=== PATIENT | male | born 1960 | race Caucasian/White ===

== ENCOUNTER 2023-11-02 11:52 | Outpatient (AMB) | payer OTHER, SELFPAY ==
--- NOTE | 2023-11-02 11:58 | MHC.OFFVIS ---
Intake Vital Signs 11/02/23 12:08 Height 6 ft Weight 260 lb BMI 35.3 Intake Visit Reasons: New Pt - Second Opinion Right Shoulder Intake Note: Louis is a 63 year old right hand dominant male who presents today for a second opinion of his right shoulder. He was previously seen with [facility]. Patient reports that he has had ongoing right shoulder pain for over two years now. He was supposed to have a right RTC repair done with [facility] but at the time his was dealing with brain cancer so it was postponed. He had a cortisone injection about 2 weels ago whih only helped for about 2 week now. Allergies No Known Allergies Allergy (Verified 11/02/23 12:11) HPI New Pt - Second Opinion Right Shoulder HPI Details Louis is a 63 year old man who presents for a second opinion of his right shoulder pain. He complains of pain with daily activity, worse with overhead activity and at night. he says this has been present for more than 2 years now. He has been seen at [facility] in the past for this. A RTC repair was planned but he had to postpone to care for his sick . He says he received a steroid injection ~2 weeks ago at [facility] which was mildly helpful until now. PFSH Surgical History (Updated 11/02/23 @ 12:13 by Ginny Ramirez CMA) Hx of eye surgery Hx of colectomy Social History (Updated 11/02/23 @ 12:14 by Ginny Ramirez CMA) Current occupational status: employed Current occupation: [employer] Review of Systems Const All systems reviewed & are unremarkable except as noted in HPI and below Physical Exam Vital Signs: BMI result Body Mass Index 35.3 Const General: no acute distress, alert and awake Orientation/consciousness: patient oriented x3 HEENT Head: Yes normocephalic and Yes atraumatic Eyes EOM: EOMs intact bilaterally Resp Effort & Inspection: normal respiratory effort and able to speak in complete sentences Cardio Jugular venous distension: no JVD Skin General skin exam: turgor normal Rashes: no rashes Neuro General: patient oriented x3 Extrem Other: 30/90/130 scapular recruitment with abduction 4+/5 EC neg lag neg HB Psych Appearance: grossly normal Affect: normal affect Attitude: cooperative Results Reviewed Results Reviewed: I personally reviewed relevant radiographs I reviewed MRI and there is a full thickness supraspinatus tear with mild retreaction and no atrophy. THere appears to be a partially intact infraspinatus. I personally reviewed relevant radiographs. No HH migration no OA Assessment & Plan Assessment & Plan (1) Rotator cuff tear, right: Code(s): M75.101 - Unspecified rotator cuff tear or rupture of right shoulder, not specified as traumatic Plan: Louis is a 63 yo with a right RTC tear. I reviewed his MRI from recently and compared to another he had ~ 2 years ago. In my opinion this is a clear indication for RTC repair. I think arthroplasty is too aggressive and I explained the details of RTC repair and the possible difficulties involved with repair including failure and need for additional surgery. He expressed understanding and hopefully this helps him feel that surgery is not controversial and he can proceed forward. Plan Scribed for Juventino Carvalho MD by Raymundo Garcia, medical library assistant, on 11/02/23 at 12:20 PM, EST. Orders: Orders XR shoulder RT min 2V 11/02/23 M25.519 - Pain in unspecified shoulder Coding Level of Care Code New Pt Level 4 (57397) Diagnoses Rotator cuff tear, right M75.101
[2023-11-02 12:08] VITALS: BMI 35.3
== END 2023-11-02 13:06 | disposition home or self-care (01) ==
PROVIDERS: Visit Provider Orthopaedic Surgery
DX: M75.101 Unspecified rotator cuff tear or rupture of right shoulder, not specified as traumatic (principal)
CPT/HCPCS: 99204

== ENCOUNTER 2023-11-02 11:52 | Outpatient (REF) | payer OTHER, SELFPAY ==
--- NOTE | ~2023-11-02 | XR_ITS ---
EXAMINATION: XR SHOULDER, RIGHT CLINICAL INFORMATION: Pain in unspecified shoulder COMPARISON: None available. TECHNIQUE: Neutral AP, Grashey and axillary views of the right shoulder. FINDINGS: The bones are intact no fracture. Glenohumeral and acromioclavicular alignment is anatomic. There is marked degenerative change acromioclavicular joint. There is moderate narrowing of the glenohumeral joint. A few calcifications are seen adjacent to the humeral head consistent with calcific tendinitis. XR/XR shoulder RT min 2V IMPRESSION: 1. Calcific tendinitis. 2. Marked degenerative change of the acromioclavicular joint and moderate degenerative change of the glenohumeral joint.
== END 2023-11-02 11:53 | disposition home or self-care (01) ==
LOC: HO.HOSX 11:52
PROVIDERS: Visit Provider Orthopaedic Surgery
DX: M75.101 Unspecified rotator cuff tear or rupture of right shoulder, not specified as traumatic (principal)
CPT/HCPCS: 73030

== ENCOUNTER 2024-02-11 09:19 | Outpatient (AMB) | payer OTHER, SELFPAY ==
--- NOTE | 2024-02-11 09:59 | MHC.OFFVIS ---
Intake Intake Visit Reasons: Pre Op Rt RTC repair 02/24/24 NE Intake Note: Louis is a 64 year old male who presents today for a pre op appointment for his right RTC repair 02/24/24 NE. Patient was fitted for a UltraSling(L). Allergies No Known Allergies Allergy (Verified 02/11/24 10:00) HPI Pre Op Rt RTC repair 02/24/24 NE HPI Details 64-year-old male who presents in the office today for his preoperative history and physical exam prior to a right shoulder rotator cuff repair to be performed on 02/24/[address] Juventino Carvalho. Patient presents with [facility] paperwork. He states he is planning on assisted after 03/25/2024. He needs his re-evaluation to be around 03/25/2024 for follow up paperwork. Patient confirms having a machine to help him with inflammation. Patient has no known allergy history. Patient is currently taking, as follows: -Amlodipine 10 mg PO daily -Cyclosporine 0.05% ophthalmic drop PRN -Fenofibrate nanocrystallized 48 mg PO daily -Hydrochlorothiazide 25 mg PO daily -Lisinopril 20 mg PO daily -Lisinopril 40 mg PO daily -Pravastatin 40 mg PO daily -Tamsulosin 0.4 mg PO daily Patient has no significant medical history. Patient has a surgical history, as follows: -Hx of eye surgery -Hx of colectomy Patient has a social history, as follows: -Employment: [employer] History (Updated 02/11/24 @ 10:34 by Chelsea Schneider PA-C) Hypercholesteremia BPH (benign prostatic hyperplasia) Hypertension Surgical History (Updated 11/02/23 @ 12:13 by Ginny Ramirez CMA) Hx of eye surgery Hx of colectomy Social History (Updated 11/02/23 @ 12:14 by Ginny Ramirez CMA) Current occupational status: employed Current occupation: [employer] Review of Systems Const All systems reviewed & are unremarkable except as noted in HPI and below Physical Exam Const General: cooperative, healthy appearing, comfortable, no acute distress, well developed, alert and awake Orientation/consciousness: patient oriented x3 HEENT Head: Yes normal to inspection, Yes normocephalic and Yes atraumatic Eyes General: appearance normal, both eyes and all related structures EOM: EOMs intact bilaterally Neck Neck: Yes normal visual inspection and Yes no lymphadenopathy Resp Effort & Inspection: normal respiratory effort and able to speak in complete sentences Cardio Jugular venous distension: no JVD Rate: regular rate Peripheral pulses: Peripheral pulses 2+ throughout GI Inspection: Yes normal to inspection Palpation (GI): Soft to palpation Skin General skin exam: no rashes or lesions noted Rashes: no rashes Neuro General: patient oriented x3 Extrem Other: Right shoulder: Skin is clean and intact. /130 scapular recruitment with abduction 4+/5 EC neg lag neg HB Psych Appearance: grossly normal Mental Status: mental status grossly normal Affect: normal affect Attitude: cooperative Assessment & Plan Assessment & Plan (1) Rotator cuff tear, right: Code(s): M75.101 - Unspecified rotator cuff tear or rupture of right shoulder, not specified as traumatic Plan Mr. Luna is a 64-year-old male who presents in the office today for his preoperative history and physical exam prior to a right shoulder rotator cuff repair to be performed on 02/24/[address] Juventino Carvalho. Patient presents with [facility] paperwork. He states he is planning on assisted after 03/25/2024. He needs his re-evaluation to be around 03/25/2024 for follow up paperwork. Patient confirms having a machine to help him with inflammation. Patient has no known allergy history. Patient is currently taking, as follows: -Amlodipine 10 mg PO daily -Cyclosporine 0.05% ophthalmic drop PRN -Fenofibrate nanocrystallized 48 mg PO daily -Hydrochlorothiazide 25 mg PO daily -Lisinopril 20 mg PO daily -Lisinopril 40 mg PO daily -Pravastatin 40 mg PO daily -Tamsulosin 0.4 mg PO daily Patient has no significant medical history. Patient has a surgical history, as follows: -Hx of eye surgery -Hx of colectomy Patient has a social history, as follows: -Employment: [employer] [place] I discussed in detail the procedure and what to expect pre and post operatively. We discussed the risks, benefits and alternatives to the surgery as well as the rehabilitation course. The risks; which include, but are not limited to infection, bleeding, nerve injury, ongoing pain, swelling, and stiffness, perioperative risk of injury to bones and soft tissues, and blood clots. I have answered all questions and with their understanding they have consented to move forward with a right shoulder rotator cuff repair to be performed on 02/24/[address] Juventino Carvalho. Post operative medications was sent to the pharmacy, Oxycodone-acetaminophen 5-325 mg (Percocet) PO Q4-6H PRN, quantity 42 tabs for 7 days and Morphine ER 15 mg (MS Contin) PO Q12H PRN, quantity 6 tabs for 3 days while in the office today. The patient was instructed that he should obtain the prescription prior to surgery but should not consume until after the procedure; as these should only be taken for post operative pain management. Should the patient take these medications prior to surgery a refill will not be sent to the pharmacy until their scheduled refill date. Follow up will be at the post operative appointment on 03/10/2024 at 3:00 pm, or sooner if needed. Patient was fitted for a UltraSling(L). Medications: New oxycodone-acetaminophen 5-325 mg (Percocet) Partial Fill upon patient request. 1 tab PO Q4-6H PRN 42 tabs 0RF pain 7 days morphine ER (MS Contin) Partial Fill upon patient request. 15 mg PO Q12H 6 tabs 0RF pain severe 3 days Patient Instructions: Scribed by Hillary Holloway director of medical education, for Chelsea Schneider PA-C on 02/11/2024 at 9:23 am, EST. Coding Level of Care Code Global (89080) Diagnoses Rotator cuff tear, right M75.101
== END 2024-02-11 10:27 | disposition home or self-care (01) ==
PROVIDERS: PCP Student in an Organized Health Care Education/Training Program; Visit Provider Physician Assistant
DX: M75.101 Unspecified rotator cuff tear or rupture of right shoulder, not specified as traumatic (principal)
CPT/HCPCS: 99024

== ENCOUNTER → 2024-02-11 09:19 | Outpatient (BNVA) | payer OTHER, SELFPAY | PROVIDERS: PCP Student in an Organized Health Care Education/Training Program; Visit Provider Physician Assistant ==

== ENCOUNTER 2024-02-16 11:00 | Outpatient (RCR) | payer OTHER, SELFPAY | END 2024-12-07 11:33 | disposition home or self-care (01) | LOC: HO.PTWFD 11:00 | PROVIDERS: PCP Student in an Organized Health Care Education/Training Program; Visit Provider Orthopaedic Surgery | DX: M75.101 Unspecified rotator cuff tear or rupture of right shoulder, not specified as traumatic (principal) | CPT/HCPCS: 97110; 97161; 97535 ==

== ENCOUNTER 2024-02-24 07:49 | Day surgery (SDC) | payer OTHER, SELFPAY ==
[2024-02-19 16:58] VITALS: BMI 34.9
--- NOTE | 2024-02-23 09:04 | HO.ANESPROP2 ---
Documented by User: Kalyn Meeks NP 02/23/24 09:07 HPI - Anesthesia Eval Consult details Narrative: 64yo M for Right Arthroscopic Rotator Cuff Repair PMFSH Active Problems Active Problems: All Active Problems Rotator cuff tear, right (Acute) Past Medical History Medical History VALERIA (obstructive sleep apnea) Hypercholesteremia BPH (benign prostatic hyperplasia) Hypertension Surgical History Surgical History H/O colonoscopy Hx of eye surgery Hx of colectomy Social History Social History Patient Tobacco Use Status: Never used Tobacco Use of substances other than those prescribed or required for medical reasons: No Are you DNR?: No Advance Directives: No Advance Directives Information Provided: Yes Advance Directives on File: No (Pt to bring DOS) Advance Directives Date on File: 02/19/24 Recently lost weight without trying: No How much weight loss: Not applicable Eating poorly because of decreased appetite: No Nutrition screen score: 0 Nutrition Risks: No Nutritional Risk Poor oral hygiene: No Current occupational status: employed Current occupation: [employer] Allergies Allergy/AdvReac Type Severity Reaction Status Date / Time No Known Allergies Allergy Verified 02/19/24 16:45 Home Medications ?Medication ?Instructions ?Recorded ?Confirmed ?Last Taken ?Type amlodipine 10 mg tablet 10 mg PO DAILY 11/02/23 02/19/24 02/24/24 History cyclosporine 0.05 % eye drops in a 1 drp ophthalmic (eye) DAILY 11/02/23 02/19/24 Unknown History dropperette (Restasis) fenofibrate nanocrystallized 48 mg 48 mg PO DAILY 11/02/23 02/19/24 Unknown History tablet hydrochlorothiazide 25 mg tablet 25 mg PO DAILY 11/02/23 02/19/24 Unknown History lisinopril 20 mg tablet 20 mg PO DAILY 11/02/23 02/19/24 Unknown History lisinopril 40 mg tablet 40 mg PO DAILY 11/02/23 02/19/24 Unknown History pravastatin 40 mg tablet 40 mg PO DAILY 11/02/23 02/19/24 Unknown History tamsulosin 0.4 mg capsule 0.4 mg PO DAILY 11/02/23 02/19/24 Unknown History Exam Height,Weight and Vital Signs: Height 6 ft Weight 116.573 kg Assessment and Plan Assessment Anesthesia Assessment: Chart Reviewed Documented by User: Lainey Garcia MD 02/24/24 10:09 [facility] Past Medical History Medical History VALERIA (obstructive sleep apnea) Hypercholesteremia BPH (benign prostatic hyperplasia) Hypertension Family History Family history of problems with anesthesia: No Surgical History Surgical History H/O colonoscopy Hx of eye surgery Hx of colectomy History of Problems with Anesthesia: No Social History Social History Patient Tobacco Use Status: Never used Tobacco Use of substances other than those prescribed or required for medical reasons: No Are you DNR?: No Advance Directives: No Advance Directives Information Provided: Yes Advance Directives on File: No (Pt to bring DOS) Advance Directives Date on File: 02/19/24 Recently lost weight without trying: No How much weight loss: Not applicable Eating poorly because of decreased appetite: No Nutrition screen score: 0 Nutrition Risks: No Nutritional Risk Poor oral hygiene: No Current occupational status: employed Current occupation: [employer] Allergies Allergy/AdvReac Type Severity Reaction Status Date / Time No Known Allergies Allergy Verified 02/19/24 16:45 Home Medications ?Medication ?Instructions ?Recorded ?Confirmed ?Last Taken ?Type amlodipine 10 mg tablet 10 mg PO DAILY 11/02/23 02/19/24 02/24/24 History cyclosporine 0.05 % eye drops in a 1 drp ophthalmic (eye) DAILY 11/02/23 02/19/24 Unknown History dropperette (Restasis) fenofibrate nanocrystallized 48 mg 48 mg PO DAILY 11/02/23 02/19/24 Unknown History tablet hydrochlorothiazide 25 mg tablet 25 mg PO DAILY 11/02/23 02/19/24 Unknown History lisinopril 20 mg tablet 20 mg PO DAILY 11/02/23 02/19/24 Unknown History lisinopril 40 mg tablet 40 mg PO DAILY 11/02/23 02/19/24 Unknown History pravastatin 40 mg tablet 40 mg PO DAILY 11/02/23 02/19/24 Unknown History tamsulosin 0.4 mg capsule 0.4 mg PO DAILY 11/02/23 02/19/24 Unknown History Exam Airway Mallampati Class: III TM Dist: >3cm Neck ROM: Limited Heart: rrr Lungs: cta Assessment and Plan Assessment Anesthesia Assessment: Anesthesia Plan Discussed (cbc,lytes,ekg ordered .no preop labs baseline. pt on bipap, 117 kgs and on 3 htn meds incl high dose lisinopril) Final Anesthetic Review Family History of Problems with Anesthesia: No History of Problems with Anesthesia: No NPO: Yes ASA Class: III Final Preanesthetic Review: No Changes in Pt Med Stat, Meds/Allgs Chart Reviewed, Consent Obtained/Reviewed and Anes Risks/Benef Reviewed Patient Risk: Intermediate Procedure Risk: Intermediate Anesthetic Plan Anesthetic Plan: GA and Regional Block Disposition: Standard PACU
[2024-02-24] VITALS (9 sets, daily range): BP systolic 119–179; BP diastolic 57–90; PULSE 71–84; RESP 13–20; TEMP 36.1–36.3; O2SAT 94–98; BMI 35.1
--- NOTE | 2024-02-24 | ECG_ITS ---
Test Reason : surg. Blood Pressure : / mmHG Vent. Rate : 066 BPM Atrial Rate : 066 BPM P-R Int : 178 ms QRS Dur : 100 ms QT Int : 418 ms P-R-T Axes : 055 002 015 degrees QTc Int : 438 ms Normal sinus rhythm Normal ECG No previous ECGs available Referred By: Lainey Garcia Electronically Signed By:CHAZ WAGGONER MD
[2024-02-24] MEDS: Lactated Ringers 1,000 ML 100 ML IVCONT (08:22)
[2024-02-24 08:45] LABS: Hemoglobin 13.8 g/dl (14.0-18.0); Mean Corpuscular HGB Conc 34.5 g/dl (31.0-36.0); Mean Corpuscular Hemoglobin 31.5 pg (27.0-33.0); Mean Corpuscular Volume 91.3 fL (80.0-98.0); Mean Platelet Volume 10.6 fL (9.4-12.4); Platelet Count 242 X10*3/uL (160-400); Red Blood Count 4.38 X10*6/uL (4.60-5.80); Red Cell Distribution Width 13.3 % (11.0-16.0); White Blood Count 9.3 X10*3/uL (4.8-10.8)
[2024-02-24 08:58] LABS: Anion Gap 15 (12-20); Blood Urea Nitrogen 14 mg/dL (9-16); Calcium 9.3 mg/dL (8.4-10.2); Carbon Dioxide 26 mmol/L (22-29); Chloride 106 mmol/L (96-108); Creatinine Clr Calc Pharmacy 117.6; Estimated Glomerular Filt Rate > 60; Glucose Fasting 106 mg/dL (60-99); Potassium 3.1 mmol/L (3.3-5.1); Sodium 144 mmol/L (135-145)
--- NOTE | 2024-02-24 09:33 | MHC.SHP ---
Pre-Procedural Eval Section A - 24 Hr Update-Section A only Date of Service: 02/24/24 The patient is an INPATIENT: No Changes since office visit: No Cold of Flu in the past 2 weeks, No New Medical Problems, No Changes in Medication and No Patient answered all questions The patient has been examined within 24 hours of the surgical procedure. The History & Physical has been completed within 30 days and I have reviewed it.: Yes Section B - Complete if H&P > 30 days Chief Complaint: Unspecified rotator cuff tear or rupture of right Allergies: Allergies Allergy/AdvReac Type Severity Reaction Status Date / Time No Known Allergies Allergy Verified 02/19/24 16:45 Plan I have reviewed the history and physical and performed a pertinent physical examination on my patient. No changes have occurred unless specified. Time Spent With Patient Time: Total time managing care of this patient today ____ minutes.
--- NOTE | 2024-02-24 11:07 | PM.OP ---
Brief Operative Note Date of Service: 02/24/24 Pre-op diagnosis: Right rotator cuff tear Post-op diagnosis: same Procedure: Right rotator cuff repair Implants: Diop and Nephew double loaded Helacoil x 3 Idop and nephew 5.0 knotless Helacoil x 3 Surgeon: Juventino Carvalho MD Anesthesia: GETA Was an Radiologic Technologist used for this Procedure?: No Radiologic Technologist: Chelsea Schneider Estimated blood loss (mL): 25 IV fluids (mL): 1,000 Pathology: none sent Condition: stable Disposition: PACU
--- NOTE | 2024-02-27 12:26 | W.PM.OPN ---
Operative Note Operative Note Date of Service: 02/24/24 Narrative: Date of Service: 02/24/24 Pre-op diagnosis: Right rotator cuff tear Post-op diagnosis: same Procedure: Right rotator cuff repair Implants: Diop and Nephew double loaded Helacoil x 3 Diop and nephew 5.0 knotless Helacoil x 3 Surgeon: Juventino Carvalho MD Anesthesia: GETA Was an Nurse Practitioner Hospitalist used for this Procedure?: No Nurse Practitioner Hospitalist: Chelsea Schneider Estimated blood loss (mL): 25 IV fluids (mL): 1,000 Pathology: none sent Condition: stable Disposition: PACU Procedure in detail: Patient was brought to the operating room and placed the the beach chair position. All bony prominences were well padded and the limb was prepped and draped in standard sterile fashion. A time out was called to identify proper site, proper procedure and proper surgeon. IV antibiotics per weight were administered. I began by making a posterolateral stab incision with a 15 blade. A blunt trochar was placed into the glenohumeral joint and I insufflated the joint with saline and a 30 degree arthroscope was placed. I established an outside- in anterior portal just distal to the biceps tendon. I then began my inspection of the glenohumeral joint. There was mild superior labral degeneration. The biceps anchor was intact. There no cartilage changes at the inferior glenoid without humeral head changes. There was a full thickness undersurface RTC tear. The subcapularis was intact. I debrided the loose cartilage of the glenoid and the degenerative labral tearing. I then removed the trochar and entered the subacromial space. A direct lateral portal was then established and I performed a bursectomy. The cuff was then examined. There was a full thickness tear of the supra and infraspinatus with retraction. The tear was mobile to a point. I released anteriorly and medially.. I placed three medial row double loaded anchors after using a tap just adjacent to the articular cartilage and then brought the suture limbs (12) through the medial cuff. I then debrided the bare area down to bleeding bone and, using a cross bridge configuration, brought 4 limbs to each of three lateral 5.0 anchors. This re-approximated the cuff anatomy near anatomically. I performed a 4mm SAD using a swetha. Once I was satisfied with the repair final images were captured and I removed all instrumentation. Portals were closed with nylon. Patient was placed in an abduction sling, extubated and brought to the recovery room in stable condition. There were no known complications.
== END 2024-02-24 12:58 | disposition home or self-care (01) ==
PROVIDERS: Anesthesiology; PCP Student in an Organized Health Care Education/Training Program; Visit Provider Orthopaedic Surgery
PROC: (CPT 29827; principal; 2024-02-24 10:20)
DX: M75.101 Unspecified rotator cuff tear or rupture of right shoulder, not specified as traumatic (principal); I10 Essential (primary) hypertension; E78.00 Pure hypercholesterolemia, unspecified; N40.0 Benign prostatic hyperplasia without lower urinary tract symptoms; Z79.899 Other long term (current) drug therapy; Z98.890 Other specified postprocedural states
CPT/HCPCS: 29827; 36415; 80048; 85027; 93005; C1713; J0131; J0171; J0665; J0690; J1100; J1885; J2250; J2405; J2704; J3010

== ENCOUNTER → 2024-02-24 07:49 | Outpatient (BNV) | payer OTHER, SELFPAY | PROVIDERS: PCP Student in an Organized Health Care Education/Training Program; Visit Provider Orthopaedic Surgery | DX: M75.121 Complete rotator cuff tear or rupture of right shoulder, not specified as traumatic (principal) | CPT/HCPCS: 29827 ==

== ENCOUNTER → 2024-02-24 08:23 | Outpatient (BNV) | payer OTHER, SELFPAY | PROVIDERS: PCP Student in an Organized Health Care Education/Training Program; Visit Provider Internal Medicine Cardiovascular Disease | DX: Z01.818 Encounter for other preprocedural examination (principal) | CPT/HCPCS: 93010 ==

== ENCOUNTER 2024-03-10 14:46 | Outpatient (AMB) | payer OTHER, SELFPAY ==
--- NOTE | 2024-03-10 14:50 | A.OFFVIS_ITS ---
Intake Visit Reasons: PO Rt RTC repair 02/24/24 NE Intake Note: Louis is a 64 year old right hand dominant male who presents today for a post op appointment s/p Rt RTC repair 02/24/24 NE. Patient reports having some soreness. He has been taking Tylenol which helps him. Allergies No Known Allergies Allergy (Verified 03/10/24 14:50) HPI HPI PO Rt RTC repair 02/24/24 NE: Details: 64-year-old female who presents in the office today 15 days status post right shoulder rotator cuff repair, which was performed on 02/24/[address] Carvalho. While in the office today the patient reports having some soreness. He confirms the use of Tylenol with relief. PFSH Medical History VALERIA (obstructive sleep apnea) Hypercholesteremia BPH (benign prostatic hyperplasia) Hypertension Surgical History H/O colonoscopy Hx of eye surgery Hx of colectomy Social History Patient Tobacco Use Status: Never used Tobacco Advance Directives Date on File: 02/19/24 Current occupational status: employed Current occupation: [employer] Review of Systems Const All systems reviewed & are unremarkable except as noted in HPI and below Physical Exam Extrem Other: Right shoulder: Incision site is clean, dry, and intact. Sutures intact. No surrounding erythema or drainage. No signs of infection. Forward flexion and abduction to 45 degrees. External rotation to neutral. NVI. Assessment & Plan Assessment & Plan (1) Status post right rotator cuff repair: Onset Date: ~02/24/24 Comment: NE Code(s): Z98.890 - Other specified postprocedural states Category: Surgical Plan Ms. Luna is a 64-year-old female who presents in the office today 15 days status post right shoulder rotator cuff repair, which was performed on 02/24/[address] Carvalho. While in the office today the patient reports having some soreness. He confirms the use of Tylenol with relief. Sutures were removed and steri-stripes were applied. He will transition to outpatient physical therapy which begins tomorrow, 03/11/2024. Follow up will be in [address] Carvalho, or sooner if needed. Current pain regiment: -Morphine ER 15 mg PO Q12H -Oxycodone=acetaminophen 5-325 mg PO Q4-6H PRN Patient Instructions: Scribed by Hillary Holloway certified medical biller, for Chelsea Schneider PA-C on 03/10/2024 at 2:47 pm, EST. Coding Level of Care Code Global (29835) Diagnoses Status post right rotator cuff repair Z98.890
== END 2024-03-10 15:27 | disposition home or self-care (01) ==
PROVIDERS: PCP Student in an Organized Health Care Education/Training Program; Visit Provider Physician Assistant
DX: Z98.890 Other specified postprocedural states (principal)
CPT/HCPCS: 99024

== ENCOUNTER → 2024-03-10 14:46 | Outpatient (BNVA) | payer OTHER, SELFPAY | PROVIDERS: PCP Student in an Organized Health Care Education/Training Program; Visit Provider Physician Assistant ==

== ENCOUNTER 2024-04-04 14:18 | Outpatient (AMB) | payer OTHER, SELFPAY ==
--- NOTE | 2024-04-04 14:21 | A.OFFVIS_ITS ---
Intake Visit Reasons: PO Rt RTC repair 02/24/24 NE Intake Note: Louis is a 64 year old old right hand dominant male who presents today for a post op appointment s/p Rt RTC repair 02/24/24 NE. Patient reports having some soreness. He has been taking Tylenol which helps him. He continues to work with physical therapy which is going well. He is anxious to discontinue his sling. Allergies No Known Allergies Allergy (Verified 04/04/24 14:27) HPI HPI PO Rt RTC repair 02/24/24 NE: Details: Louis is a 64 year old old right hand dominant male who presents today for a post op appointment s/p Rt RTC repair 02/24/24 NE. Patient reports having some soreness. He has been taking Tylenol which helps him. He continues to work with physical therapy which is going well. He is anxious to discontinue his sling. [facility] Medical History VALERIA (obstructive sleep apnea) Hypercholesteremia BPH (benign prostatic hyperplasia) Hypertension Surgical History H/O colonoscopy Hx of eye surgery Hx of colectomy Social History Patient Tobacco Use Status: Never used Tobacco Advance Directives Date on File: 02/19/24 Current occupational status: employed Current occupation: [employer] Physical Exam Extrem Other: portals c/d/i Assessment & Plan Assessment & Plan (1) Status post right rotator cuff repair: Onset Date: ~02/24/24 Comment: NE Code(s): Z98.890 - Other specified postprocedural states Category: Surgical Plan: Doing well May d/c sling Large RTC repair protocol Coding Level of Care Code Global (21879) Diagnoses Status post right rotator cuff repair Z98.890
== END 2024-04-04 14:47 | disposition home or self-care (01) ==
PROVIDERS: PCP Student in an Organized Health Care Education/Training Program; Visit Provider Orthopaedic Surgery
DX: Z98.890 Other specified postprocedural states (principal)
CPT/HCPCS: 99024

== ENCOUNTER → 2024-04-04 14:18 | Outpatient (BNVA) | payer OTHER, SELFPAY | PROVIDERS: PCP Student in an Organized Health Care Education/Training Program; Visit Provider Orthopaedic Surgery ==

== ENCOUNTER 2024-05-16 13:05 | Outpatient (AMB) | payer OTHER, SELFPAY ==
--- NOTE | 2024-05-16 13:07 | A.OFFVIS_ITS ---
Vital Signs 05/16/24 13:10 Height 6 ft Weight 254 lb BMI 34.4 Intake Visit Reasons: PO Rt RTC repair 02/24/24 NE Intake Note: Louis is a 64 year old female who presents today post operatively s/p Right RTC repair 02/24/24 NE. Patient reports he is doing okay. He would like to know how many more things he can be cleared to do because PT would like clearance for certain activities from [facility]. Allergies No Known Allergies Allergy (Verified 05/16/24 13:12) HPI HPI PO Rt RTC repair 02/24/24 NE: Details: Louis is a 64 year old female who presents today post operatively s/p Right RTC repair 02/24/24 NE. Patient reports he is doing okay. He would like to know how many more things he can be cleared to do because PT would like clearance for certain activities from [facility]. PFSH Medical History VALERIA (obstructive sleep apnea) Hypercholesteremia BPH (benign prostatic hyperplasia) Hypertension Surgical History H/O colonoscopy Hx of eye surgery Hx of colectomy Social History (Updated 05/16/24 @ 13:13 by FINA Corona) Patient Tobacco Use Status: Never used Tobacco Advance Directives Date on File: 02/19/24 Current occupational status: retired Physical Exam Vital Signs: BMI result Body Mass Index 34.4 Extrem Other: passive ER to 30 deg active abd to 50 portals c/d/i Assessment & Plan Assessment & Plan (1) Status post right rotator cuff repair: Onset Date: ~02/24/24 Comment: NE Code(s): Z98.890 - Other specified postprocedural states Category: Surgical Plan: 3 months s/p lg RTC tear. Lg repair protocol. May initiate progressive resistance. Reviewed this with him. No overhead lifting and should avoid lifting until [facility] motion. f/u 3 mo Coding Level of Care Code Global (59834) Diagnoses Status post right rotator cuff repair Z98.890
[2024-05-16 13:10] VITALS: BMI 34.4
== END 2024-05-16 13:36 | disposition home or self-care (01) ==
PROVIDERS: PCP Student in an Organized Health Care Education/Training Program; Visit Provider Orthopaedic Surgery
DX: Z98.890 Other specified postprocedural states (principal)
CPT/HCPCS: 99024

== ENCOUNTER → 2024-05-16 13:05 | Outpatient (BNVA) | payer OTHER, SELFPAY | PROVIDERS: PCP Student in an Organized Health Care Education/Training Program; Visit Provider Orthopaedic Surgery ==

== ENCOUNTER 2024-07-25 11:16 | Outpatient (AMB) | payer OTHER, SELFPAY ==
--- NOTE | 2024-07-25 11:22 | MHC.OFFVIS ---
Vital Signs 07/25/24 11:23 Height 6 ft Weight 254 lb BMI 34.4 Intake Visit Reasons: OV- Rt RTC repair 02/24/24 NE Intake Note: Louis is a 64 year old female who presents today post operatively s/p Right RTC repair 02/24/24 NE. At his last visit he was instructed to do no overhead lifting. Patient reports that he is doing well, he is continuing with PT. Allergies No Known Allergies Allergy (Verified 07/25/24 11:32) HPI HPI OV- Rt RTC repair 02/24/24 NE: Details: Five months status post large rotator cuff repair. He is doing well with limited motion but decent strength and minimal pain. PFSH Medical History VALERIA (obstructive sleep apnea) Hypercholesteremia BPH (benign prostatic hyperplasia) Hypertension Surgical History H/O colonoscopy Hx of eye surgery Hx of colectomy Social History Patient Tobacco Use Status: Never used Tobacco Advance Directives Date on File: 02/19/24 Current occupational status: retired Physical Exam Vital Signs: BMI result Body Mass Index 34.4 Extrem Other: 4+/5 empty can 80 degrees abduction 20 degrees external rotation and 110 degrees forward flexion Assessment & Plan Assessment & Plan (1) Status post right rotator cuff repair: Onset Date: ~02/24/24 Comment: NE Code(s): Z98.890 - Other specified postprocedural states Category: Surgical Plan: Status post rotator cuff repair. Large retracted tear. He is doing well but I recommend he continue range of motion with light strengthening. Follow up 3 months. Coding Level of Care Code Est Pt Level 3 (82517) Diagnoses Status post right rotator cuff repair Z98.890
[2024-07-25 11:23] VITALS: BMI 34.4
== END 2024-07-25 11:47 | disposition home or self-care (01) ==
PROVIDERS: PCP Student in an Organized Health Care Education/Training Program; Visit Provider Orthopaedic Surgery
DX: M75.121 Complete rotator cuff tear or rupture of right shoulder, not specified as traumatic (principal)
CPT/HCPCS: 99212

== ENCOUNTER → 2024-07-25 11:16 | Outpatient (BNVA) | payer OTHER, SELFPAY | PROVIDERS: PCP Student in an Organized Health Care Education/Training Program; Visit Provider Orthopaedic Surgery ==

== ENCOUNTER 2024-10-24 10:40 | Outpatient (AMB) | payer OTHER, SELFPAY ==
[2024-10-24 11:00] VITALS: BMI 34.4
--- NOTE | 2024-10-24 11:00 | MHC.OFFVIS ---
Vital Signs 10/24/24 11:00 Height 6 ft Weight 254 lb BMI 34.4 Intake Visit Reasons: OV-Rt RTC repair 02/24/24 NE Intake Note: Louis is a 64 year old right hand dominant male who presents today for a follow up of his right shoulder s/p Right RTC Repair 02/24/24. This was a large retracted tear. Patient reports that he is doing well, with no pain. He continues to work on his ROM which is still limited with above shoulder height movements Allergies No Known Allergies Allergy (Verified 10/24/24 11:00) HPI HPI OV-Rt RTC repair 02/24/24 NE: Details: Louis is a 64 year old right hand dominant male who presents today for a follow up of his right shoulder s/p Right RTC Repair 02/24/24. This was a large retracted tear. Patient reports that he is doing well, with no pain. He continues to work on his ROM which is still limited with above shoulder height movements PFSH Medical History VALERIA (obstructive sleep apnea) Hypercholesteremia BPH (benign prostatic hyperplasia) Hypertension Surgical History H/O colonoscopy Hx of eye surgery Hx of colectomy Social History Patient Tobacco Use Status: Never used Tobacco Advance Directives Date on File: 02/19/24 Current occupational status: retired Physical Exam Vital Signs: BMI result Body Mass Index 34.4 Extrem Other: 35 degrees external rotation 120 degrees forward flexion 90 degrees adduction Internal rotation L5 Negative empty can Assessment & Plan Assessment & Plan (1) Status post right rotator cuff repair: Onset Date: ~02/24/24 Comment: NE Code(s): Z98.890 - Other specified postprocedural states Category: Surgical Plan: Jorje is status post large rotator cuff repair doing well. No restrictions other than no heavy lifting. Follow up in 3 months. Continue passive abduction wall exercises. Coding Level of Care Code Est Pt Level 3 (84870) Diagnoses Status post right rotator cuff repair Z98.890
== END 2024-10-24 11:27 | disposition home or self-care (01) ==
PROVIDERS: PCP Student in an Organized Health Care Education/Training Program; Visit Provider Orthopaedic Surgery
DX: Z47.89 Encounter for other orthopedic aftercare (principal); M75.101 Unspecified rotator cuff tear or rupture of right shoulder, not specified as traumatic
CPT/HCPCS: 99212

== ENCOUNTER → 2024-10-24 10:40 | Outpatient (BNVA) | payer OTHER, SELFPAY | PROVIDERS: PCP Student in an Organized Health Care Education/Training Program; Visit Provider Orthopaedic Surgery ==

== ENCOUNTER 2024-11-17 10:00 | Outpatient (RCR) | payer OTHER, SELFPAY ==
--- NOTE | 2024-03-12 16:01 | MHC.PT.EP ---
[facility] [place] Office [place] Office [place] Office [address] [place] [address] [phone] F: [phone] F: [phone] F: [phone] F: [phone] Physical Therapy Plan of Care Date of Evaluation: 03/11/24 Date of Surgery: 02/24/24 Diagnosis: M75.101: Unspecified rotator cuff tear or rupture of right shoulder, not specified as traumatic s/p RTC repair s/p repair 02/24/24, rotator cuff tear right. signed by GIULIA Schneider Assessment: Pt is a RHD 64 y/o male, referred to PT s/p history of R RTC surgery on 02/24/24. [facility], demonstrating good tolerance for PROM and safety for precautions at home. Pt exhibits decreased AROM/aarom/prom, impaired strength, and decline in functional mobility. Pt currently unable to drive and has sleep disturbance due to pain. 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 Pt lives at home with two older children with good family support. Pt would benefit from attending skilled PT services at a frequency of 1x/week x 6 weeks, then 2x/week x 6 weeks after.. 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 Pt had post op appt yesterday 03/10/24, blayne were taken out. Pt exhibits good rehab potential for therapy. Post evaluation, pt was educated re: review of pendulums, importance of wearing sling, icin, and sleeping positions to try and ease. Frequency and Duration: The patient will be seen 1x/weekx 3 weeks, then 2x/week for 6 weeks Short Term Goals: 1. PROM flexion of R shoulder to 90 degrees. 2. PROM ER to R shoulder to neutral 0. 3. Demonstrate initiation of home program/self-care. 4. Pt will perform AAROM flexion to R shoulder to 120 when cleared per protocol. [facility] Goals: 1. PROM>AAROM>AROM R shoulder flexion to 160 degrees per protocol. 2. Pt will be I with HEP 3. Strength 5/5 all planes R shoulder when cleared per protocol. 4. Good self care management. 5. ABD R shoulder 130, ER to 80, IR midline buttocks. Treatment Plan: Modalities to reduce pain, spasms and effusion. Manual therapy to restore motion and function. Therapeutic exercise to improve strength and flexibility. Neuromuscular re-education for posture and balance. Therapeutic activities to return to functional activities of daily living. Electronically signed by: Janel Gay PT, DPT Please sign and return to therapist. Thank you for your referral.
--- NOTE | 2024-05-13 12:17 | MHC.PT.OD ---
[facility] [place] Office [place] Office [place] Office [address] [place] 140 [facility] [phone] F: [phone] F: [phone] F: [phone] F: [phone] Physical Therapy Daily Note Diagnosis: M75.101: Unspecified rotator cuff tear or rupture of right shoulder, not specified as traumatic s/p RTC repair s/p repair 02/24/24, rotator cuff tear right. signed by GIULIA Schneider Date of Surgery: 02/24/24 Date of Evaluation: 03/11/24 Date of Treatment: 05/13/24 Treatments to Date: Cancellations to Date: No Shows to Date: Authorized Visits: 14 Insurance End Date: Precautions/ Contraindications:DOS 02/24/24: Tears were in supraspinatus and infraspinatus with retraction per operative notes Subjective: I go to see Dr. Carvalho on Thursday. Pt will be seeing Dr. Carvalho on 05/16/24. Pt advancing in AAROM program daily. Pain Score and Location: 3 Objective Flowsheet: Tests & Measures [facility] [address] [place] [address] [place] [id number] Office Visit Report Draft Patient: Louis Luna JMR#: [id number] : [id number]:[id number] Age/Sex: 64 / MADM/SER Date: 04/04/24 Loc: HO.HOSADM/SER Time:1418 Attending Provider: Juventino Carvalho MD cc: ~ Intake Visit Reasons: PO Rt RTC repair 02/24/24 NE Intake Note: Louis is a 64 year old old right hand dominant male who presents today for a post op appointment s/p Rt RTC repair 02/24/24 NE. Patient reports having some soreness. He has been taking Tylenol which helps him. He continues to work with physical therapy which is going well. He is anxious to discontinue his sling. Allergies No Known Allergies Allergy (Verified 04/04/24 14:27) HPI HPI PO Rt RTC repair 02/24/24 NE: Details: Louis is a 64 year old old right hand dominant male who presents today for a post op appointment s/p Rt RTC repair 02/24/24 NE. Patient reports having some soreness. He has been taking Tylenol which helps him. He continues to work with physical therapy which is going well. He is anxious to discontinue his sling. 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 PROM R shoulder flexion, abd/ER/IR. All ranges within pain-free levels to tolerance. Modalities Ice to R shoulder x 10 minutes post shoulder (supine anterior/posterior shoulder) Assessment: 05/13/24: Louis is doing well in advancement per protocol. He has been initiated in submax isometrics with good ability. He is compliant with HEP program and will be seeing Dr. Carvalho on 05/16/24. 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 05/10/24: Pt advancing well in AAROM program. Today he was advanced in submax shoulder isometrics this date with good ability. He reported he would be traveling to the beach. Precautions in regards to avoidance of swimming was reiterated. Pt has good insight to safety and joint protection at this time. Pt will be seeing Dr. Carvalho on 05/16/24. 05/06/24: AAROM flexion 135 in supine this date, AAROM standing flexion ~80 this date, AAROM abd 110 supine, ER limited by UT shrug/elevation. Pt to see Dr. Carvalho for a follow up on . Pt doing well in regard to HEP. Pt inquires about ability to ambulate on TM and swim recreationally. Pt advised he should not be swimming or using TM at this time (to address with surgeon). 04/25/24: AAROM flexion in supine with cane ~130, AAROM abduction ~105. Pt good carryover of safety and self-care. Pt initiated in AAROm flexion in standing with aide of L UE. 04/22/24: AAROM Flex supine to 115, AAROM ER at 45 ~45 degrees, AAROM abduction ~100 degrees, AAROM IR to R lateral buttocks. Improving progression and tolerance for ROM noted. 04/19/24: Pt advancing in his ROM. Pt was encouraged to perform lower reps of exercise within comfortable ranges. Perform them 2-3x/daily (admits to stretching once daily for ER). Will likely add seated alberto next session for AAROM. 04/15/24: Pt issued AAROM cane flexion, AAROM cane abduction, AAROM cane ER in standing with towel roll for home. Pt progressing well in his ROM. 04/12/24: Pt initiated in AAROM ER in standing with towel roll, AAROM scaption in supine, and AAROM flexion in supine. To add HEP sheets/instruction next session for home per pt request to increase ease/confidence with HEP. (Sheets will be in chart). Pt was initiated in AAROM scaption of the R shoulder seated this date. Pt expressing good tolerance for AAROM program thus far. 04/05/24: Pt will be 6 weeks post op tomorrow. Pt was seen by ortho yesterday was told he could D/C sling with abd wedge. We initiated AAROm flexion in supine with aide of opposite hand and seated table slides to comfort. Pt iced shoulder afterwards. Reports taking tylenol prior to session. Good carryover of education. 03/31/24: Louis is advancing in his PROM of R shoulder. Pt compliant with sling use. Pt is 5 weeks, one day post op and will be seeing Dr. Carvalho next 03/22/24: Advancing in PROM. Doing well. Ortho follow up 04/04/24. Compliant with sling use. 03/17/24: Pt demonstrates good tolerance for PROM as noted above. Pt reports excellent compliance with sling and has minimal pain (taking tylenol in AM/PM, off narcotics. Pt will be seen again for next post op visit 04/04/24. Pt will be seen 1x/week until 6 weeks post op and then will be advanced to 2x/week thereafter. Pt is a RHD 64 y/o male, referred to PT s/p history of R RTC surgery on 02/24/24. Pt presents to office in [facility] sling with abd wedge two weeks, three days post op, demonstrating good tolerance for PROM and safety for precautions at home. Pt exhibits decreased R shoulder AROM/aarom/prom, impaired strength, and inability to use R UE during functional mobility. Pt currently unable to drive and has sleep disturbance due to pain. 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 Pt lives at home with two older children with good family support. Pt would benefit from attending skilled PT services at a frequency of 1x/week x 6 weeks, then 2x/week x 6 weeks after per protocol to meet listed goals. 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 Pt had post op appt yesterday 03/10/24, blayne were taken out. Pt exhibits excellent rehab potential for therapy. Post evaluation, pt was educated re: review of passive pain-free pendulums, importance of wearing sling, and icing shoulder to ease in sx. PT Plan: AAROM/PROM per protocol. To see Dr. Carvalho on 05/16/24 for follow-up. Short Term Goals: 1. PROM flexion of R shoulder to 90 degrees. 2. PROM ER to R shoulder to neutral 0. 3. Demonstrate initiation of home program/self-care. 4. Pt will perform AAROM flexion to R shoulder to 120 when cleared per protocol. Senior Technical Editor Goals: 1. PROM>AAROM>AROM R shoulder flexion to 160 degrees per protocol. 2. Pt will be I with HEP 3. Strength 5/5 all planes R shoulder when cleared per protocol. 4. Good self care management. 5. ABD R shoulder 130, ER to 80, IR midline buttocks. Electronically signed by: Janel Gay, PT, DPT
== END 2024-12-19 07:39 | disposition home or self-care (01) ==
LOC: HO.PTWFD 10:00
PROVIDERS: PCP Student in an Organized Health Care Education/Training Program; Visit Provider Physician Assistant
DX: M75.101 Unspecified rotator cuff tear or rupture of right shoulder, not specified as traumatic (principal)
CPT/HCPCS: 97110; 97140; 97161